=== PATIENT | female | born 2000 | race Hispanic/Latino ===

== ENCOUNTER 2018-11-20 16:52 | Inpatient (IN) | payer MEDICAID ==
[2018-11-20] MEDS ORDERED: LACTATED RINGERS 500 ML IV ONE (16:55)
[2018-11-20 17:26] LABS: Bilirubin,Urine SM (Negative); Blood,Urine NEG (Negative); Color,Urine Amber (Yellow); Mucus,Urine 3+ /HPF
[2018-11-20] MEDS ORDERED: AMPICILLIN/NS 2 GM/100 ML 2 GM/100 ML BAG IV ONE (17:43)
[2018-11-20 18:05] LABS: Ictotest,Urine Negative (Negative)
[2018-11-20 18:07] LABS: Benzodiazepines Screen,Urine PRESUMPTIVE NEGATIVE; Cocaine Screen,Urine PRESUMPTIVE NEGATIVE; Methadone Screen,Urine PRESUMPTIVE NEGATIVE; Opiate Screen,Urine PRESUMPTIVE NEGATIVE
[2018-11-20] MEDS: BRETHINE SUB-Q SCH ×2 (18:08→18:34)
[2018-11-20] MEDS ORDERED: LACTATED RINGERS 1,000 ML IV ONE (18:11)
[2018-11-20 18:31] LABS: Amphetamine Screen,Urine PRESUMPTIVE POSITIVE; Cannabinoid Screen,Urine PRESUMPTIVE POSITIVE
[2018-11-20] MEDS ORDERED: MILK OF MAGNESIA PO PRN (20:39)
[2018-11-20] MEDS ORDERED: TYLENOL PO PRN (20:39)
[2018-11-20] MEDS ORDERED: AMBIEN PO PRN (20:39)
[2018-11-20] MEDS ORDERED: COLACE PO PRN (20:39)
--- NOTE | 2018-11-20 20:39 | History and Physical Report ---
History of Present Illness Date of examination: 11/20/18 Chief complaint: contractions History of present illness: Pt is a 18yo WF EDC 12/24/18; EGA 35 1/7 weeks presents to L&D complaining of RUC's q 3-4 mins unresolved with IV hydration and SQ Terb. She is now being admitted to begin IV Magnesium sulfate for tocolysis and steroid administration. Past History Past Medical History: no pertinent history Past Surgical History: no surgical history Family/Genetic History: none Social history: no significant social history, single - Obstetrical History Expected Date of Delivery: 12/24/18 Actual Gestation: 35 Week(s) 2 Day(s) : 1 Medications and Allergies Allergies Allergy/AdvReac Type Severity Reaction Status Date / Time No Known Allergies Allergy Verified 11/20/18 17:07 Home Medications Medication Instructions Recorded Confirmed Last Taken Type No Known Home Medications [No 11/21/18 11/21/18 Unknown History Reported Home Medications] Active Meds: Active Medications Terbutaline Sulfate (Brethine) 0.25 mg SUB-Q Q20MIN [place] Stop: 11/22/18 18:01 Last Admin: 11/20/18 18:34 Dose: 0.25 mg Documented by: Review of Systems All systems: negative - Vital Signs Vital signs: Vital Signs Pulse BP 118 H 114/70 11/20/18 17:06 11/20/18 17:06 Temp Pulse Resp BP Pulse Ox 98.1 F 118 H 16 114/70 11/20/18 17:33 11/20/18 17:06 11/20/18 17:33 11/20/18 17:06 - Physical Exam Breasts: Positive: deferred Cardiovascular: Regular rate Lungs: Positive: Clear to auscultation Abdomen: Positive: normal appearance Genitourinary (Female): Positive: normal external genitalia Vagina: Positive: normal moisture Uterus: Positive: enlarged Extremities: Positive: normal - Obstetrical FHR: category 1 Uterine Contraction Monitor Mode: External Cervical Dilatation: 1.5 (per nurse) Cervical Effacement Percentage: 80 (per nurse) station: -1 Uterine Contraction Pattern: Regular Uterine Tone Measurement Phase: Contraction Uterine Contraction Intensity: Mild Results Result Diagrams: 11/20/18 17:20 11/20/18 17:20 Abnormal lab results 11/20/18 Range/Units 17:00 Ur Specific [place] 1.036 H (1.003-1.030) Urine WBC (Auto) 7.0 H (0.0-6.0) /HPF All other labs normal. Assessment and Plan - Patient Problems (1) 35 weeks gestation of Onset Date: 11/20/18 Current Visit: Yes Status: Acute Plan to address problem: A: IUP @ 35 1/7 weeks contractions +THC + Amphetamines P: Admit for Observation Begin IV Magnesium sulfate for tocolysis, Steroids and antibiotics [facility] consultation. (2) contractions Onset Date: 11/20/18 Current Visit: Yes Status: Acute
[2018-11-20] MEDS ORDERED: MAGNESIUM SULFATE 4GM/100ML 4 GM/100 ML BAG IV ONE (20:43)
[2018-11-20 21:12] LABS: Basophils # (Auto) 0.1 K/mm3 (0.0-0.1); Basophils % (Auto) 0.5 % (0.0-1.8); Eosinophils % (Auto) 0.2 % (0.0-4.3); Hematocrit 34.1 % (30.3-42.9); Hemoglobin 11.4 gm/dl (10.1-14.3); Lymphocytes # (Auto) 2.8 K/mm3 (1.2-5.4); Lymphocytes % (Auto) 20.1 % (13.4-35.0); Mean Corpuscular HGB Conc 33 % (30-34); Mean Corpuscular Volume 90 fl (79-97); Monocytes # (Auto) 0.7 K/mm3 (0.0-0.8); Monocytes % (Auto) 5.4 % (0.0-7.3); Platelet Count 269 K/mm3 (140-440); Red Cell Distribution Width 13.4 % (13.2-15.2)
[2018-11-20 21:36] LABS: Alanine Aminotransferase 16 units/L (7-56); Albumin 3.4 g/dL (3.9-5); BUN/Creatinine Ratio 14; Blood Urea Nitrogen 7 mg/dL (7-17); Calcium 8.9 mg/dL (8.4-10.2); Hemolysis Index 3
[2018-11-20] MEDS: CELESTONE SOLUSPAN IM SCH (22:12)
[2018-11-20] MEDS: MAGNESIUM SULFATE 40GM/1000ML 40 GM/1,000 ML BAG IV SCH (22:40)
[2018-11-20] MEDS: AMPICILLIN/NS 1 GM/50 ML 1 GM/50 ML BAG IV SCH (22:57)
[2018-11-21] MEDS ORDERED: STADOL ONE (03:20)
[2018-11-21] MEDS: BRETHINE SUB-Q SCH (03:25)
[2018-11-21] MEDS ORDERED: STADOL IV ONE (03:39)
[2018-11-21] MEDS: AMPICILLIN/NS 1 GM/50 ML 1 GM/50 ML BAG IV SCH ×5 (04:40→21:58)
[2018-11-21] MEDS: ZOFRAN IV PRN ×2 (04:50→11:13)
[2018-11-21] MEDS: MYLICON PO PRN ×2 (08:23→16:01)
[2018-11-21] MEDS: STADOL IV PRN ×3 (09:20→19:57)
--- NOTE | 2018-11-21 10:10 | Progress Note ---
Assessment and Plan - Patient Problems (1) 35 weeks gestation of Onset Date: 11/20/18 Current Visit: Yes Status: Acute Plan to address problem: A: IUP @ 35 2/7 weeks contractions +THC + Amphetamines P: Continue Observation Continue IV Magnesium sulfate for tocolysis, Steroids and antibiotics [facility] consultation - Discussed with [facility], allow her to deliver after 2nd dose of steroids. (2) contractions Onset Date: 11/20/18 Current Visit: Yes Status: Acute Subjective - Subjective Date of service: 11/21/18 Principal diagnosis: IUP @ 35 2/7 weeks; contractions Interval history: Pt is a 18yo WF EDC 12/24/18; EGA 35 2/7 weeks presented to L&D complaining of RUC's q 3-4 mins unresolved with IV hydration and SQ Terb. She was begun on IV Magnesium sulfate and currently on 2gm/hr for tocolysis and received 1st dose of steroids. She is still dane, but without cervical change. Patient reports: movement normal, contractions, no new complaints, no loss of fluid, no vaginal bleeding Objective - Vital Signs Vital Signs: Vital Signs - 12hr 11/20/18 11/20/18 11/20/18 22:18 22:28 22:34 Temperature 97.4 F L 97.6 F Pulse Rate 88 106 H 109 H Respiratory 16 16 Rate Blood Pressure 124/80 114/61 136/65 Blood Pressure 124/80 114/61 [Right] 11/20/18 11/20/18 11/20/18 22:38 23:11 23:43 Temperature Pulse Rate 105 H 94 H 100 H Respiratory Rate Blood Pressure 122/62 124/67 130/77 Blood Pressure [Right] 11/21/18 11/21/18 11/21/18 00:11 00:42 01:12 Temperature Pulse Rate 91 H 118 H 90 Respiratory Rate Blood Pressure 98/53 119/79 94/53 Blood Pressure [Right] 11/21/18 11/21/18 11/21/18 01:41 02:11 02:41 Temperature Pulse Rate 90 86 96 H Respiratory Rate Blood Pressure 99/55 102/58 123/78 Blood Pressure [Right] 11/21/18 11/21/18 11/21/18 03:00 03:12 03:41 Temperature 97.7 F Pulse Rate 86 95 H Respiratory Rate Blood Pressure 122/71 105/56 Blood Pressure [Right] 11/21/18 11/21/18 11/21/18 04:11 04:42 05:11 Temperature Pulse Rate 93 H 116 H 93 H Respiratory Rate Blood Pressure 111/61 127/72 118/71 Blood Pressure [Right] 11/21/18 11/21/18 11/21/18 05:41 06:12 06:41 Temperature Pulse Rate 86 87 89 Respiratory Rate Blood Pressure 120/75 121/78 117/76 Blood Pressure [Right] 11/21/18 11/21/18 11/21/18 07:11 07:41 08:13 Temperature Pulse Rate 84 83 89 Respiratory Rate Blood Pressure 103/54 100/59 124/65 Blood Pressure [Right] 11/21/18 11/21/18 11/21/18 08:42 09:13 09:42 Temperature Pulse Rate 100 H 91 H 81 Respiratory Rate Blood Pressure 123/77 124/78 109/53 Blood Pressure [Right] - Exam Cardiovascular: Regular rate Abdomen: Present: normal appearance Uterus: Present: normal FHR: category 1 Uterine Contraction Monitor Mode: External Cervical Dilatation: 2 (per nurse) Cervical Effacement Percentage: 100 (per nurse) station: 0 Uterine Contraction Pattern: Regular Uterine Tone Measurement Phase: Contraction Uterine Contraction Intensity: Moderate - Labs Labs: Abnormal Labs 11/20/18 11/20/18 11/20/18 17:00 17:20 17:20 WBC 13.7 H Seg Neutrophils % 73.8 H Seg Neutrophils # 10.1 H Sodium 135 L Creatinine 0.5 L Glucose 60 L Magnesium Alkaline Phosphatase 346 H Albumin 3.4 L Ur Specific [place] 1.036 H Urine WBC (Auto) 7.0 H 11/21/18 11/21/18 00:29 07:17 WBC Seg Neutrophils % Seg Neutrophils # Sodium Creatinine Glucose Magnesium 4.10 H 5.50 H Alkaline Phosphatase Albumin Ur Specific [place] Urine WBC (Auto) Laboratory Results - last 24 hr 11/20/18 11/20/18 11/20/18 17:00 17:20 17:20 WBC 13.7 H RBC 3.80 Hgb 11.4 Hct 34.1 MCV 90 MCH 30 MCHC 33 RDW 13.4 Plt Count 269 Lymph % (Auto) 20.1 [place] % (Auto) 5.4 Eos % (Auto) 0.2 Baso % (Auto) 0.5 Lymph # 2.8 [place] # 0.7 Eos # 0.0 Baso # 0.1 Seg Neutrophils % 73.8 H Seg Neutrophils # 10.1 H Sodium Potassium Chloride Carbon Dioxide Anion Gap BUN Creatinine Estimated GFR BUN/Creatinine Ratio Glucose Calcium Magnesium Total Bilirubin AST ALT Alkaline Phosphatase Total Protein Albumin Albumin/Globulin Ratio Urine Color [place] Urine Turbidity Clear Urine pH 5.0 Ur Specific [place] 1.036 H Urine Protein 30 mg/dl Urine Glucose (UA) Neg Urine Ketones Tr Urine Blood Neg Urine Nitrite Neg Urine Bilirubin Sm Urine Ictotest Negative Urine Urobilinogen 4.0 Ur Leukocyte Esterase Tr Urine WBC (Auto) 7.0 H Urine RBC (Auto) 2.0 U Epithel Cells (Auto) 5.0 Urine Mucus 3+ Urine Opiates Screen Urine Methadone Screen Ur Barbiturates Screen Ur Phencyclidine Scrn Ur Amphetamines Screen U Benzodiazepines Scrn Urine Cocaine Screen U Marijuana (THC) Screen Drugs of Abuse Note Blood Type A POSITIVE Antibody Screen Negative 11/20/18 11/20/18 11/21/18 17:20 17:34 00:29 WBC RBC Hgb Hct MCV MCH MCHC RDW Plt Count Lymph % (Auto) [place] % (Auto) Eos % (Auto) Baso % (Auto) Lymph # [place] # Eos # Baso # Seg Neutrophils % Seg Neutrophils # Sodium 135 L Potassium 4.2 Chloride 100.0 Carbon Dioxide 23 Anion Gap 16 BUN 7 Creatinine 0.5 L Estimated GFR > 60 BUN/Creatinine Ratio 14 Glucose 60 L Calcium 8.9 Magnesium 4.10 H Total Bilirubin 0.80 AST 22 ALT 16 Alkaline Phosphatase 346 H Total Protein 6.9 Albumin 3.4 L Albumin/Globulin Ratio 1.0 Urine Color Urine Turbidity Urine pH Ur Specific [place] Urine Protein Urine Glucose (UA) Urine Ketones Urine Blood Urine Nitrite Urine Bilirubin Urine Ictotest Urine Urobilinogen Ur Leukocyte Esterase Urine WBC (Auto) Urine RBC (Auto) U Epithel Cells (Auto) Urine Mucus Urine Opiates Screen Presumptive negative Urine Methadone Screen Presumptive negative Ur Barbiturates Screen Presumptive negative Ur Phencyclidine Scrn Presumptive negative Ur Amphetamines Screen Presumptive positive U Benzodiazepines Scrn Presumptive negative Urine Cocaine Screen Presumptive negative U Marijuana (THC) Screen Presumptive positive Drugs of Abuse Note Disclamer Blood Type Antibody Screen 11/21/18 07:17 WBC RBC Hgb Hct MCV MCH MCHC RDW Plt Count Lymph % (Auto) [place] % (Auto) Eos % (Auto) Baso % (Auto) Lymph # [place] # Eos # Baso # Seg Neutrophils % Seg Neutrophils # Sodium Potassium Chloride Carbon Dioxide Anion Gap BUN Creatinine Estimated GFR BUN/Creatinine Ratio Glucose Calcium Magnesium 5.50 H Total Bilirubin AST ALT Alkaline Phosphatase Total Protein Albumin Albumin/Globulin Ratio Urine Color Urine Turbidity Urine pH Ur Specific [place] Urine Protein Urine Glucose (UA) Urine Ketones Urine Blood Urine Nitrite Urine Bilirubin Urine Ictotest Urine Urobilinogen Ur Leukocyte Esterase Urine WBC (Auto) Urine RBC (Auto) U Epithel Cells (Auto) Urine Mucus Urine Opiates Screen Urine Methadone Screen Ur Barbiturates Screen Ur Phencyclidine Scrn Ur Amphetamines Screen U Benzodiazepines Scrn Urine Cocaine Screen U Marijuana (THC) Screen Drugs of Abuse Note Blood Type Antibody Screen
[2018-11-21] MEDS: PRENATAL VITAMIN PO SCH (11:13)
[2018-11-21] MEDS: LACTATED RINGERS 1,000 ML IV SCH (13:12)
[2018-11-21] MEDS: MAGNESIUM SULFATE 40GM/1000ML 40 GM/1,000 ML BAG IV SCH (19:59)
[2018-11-21] MEDS: CELESTONE SOLUSPAN IM SCH (21:57)
[2018-11-21] MEDS ORDERED: PITOCin/NS 20 UNIT/1000ML DRIP 20 UNITS/1,000 ML BAG IV SCH (23:00)
[2018-11-21] MEDS ORDERED: PITOCin/NS 30 UNIT/500ML 30 UNITS/500 ML BAG IV SCH (23:00)
[2018-11-22] MEDS: LACTATED RINGERS 1,000 ML IV SCH ×3 (00:37→10:26)
[2018-11-22] MEDS: ZOFRAN IV PRN ×2 (00:38→11:41)
[2018-11-22] MEDS: AMPICILLIN/NS 1 GM/50 ML 1 GM/50 ML BAG IV SCH ×4 (02:00→16:01)
[2018-11-22] MEDS: MYLICON PO PRN (06:07)
[2018-11-22] MEDS: STADOL IV PRN (06:08)
--- NOTE | 2018-11-22 09:45 | Progress Note ---
Assessment and Plan - Patient Problems (1) 35 weeks gestation of Onset Date: 11/20/18 Current Visit: Yes Status: Acute Plan to address problem: A: IUP @ 35 3/7 weeks PPROM contractions +THC + Amphetamines P: Will begin pitocin augmentation of labor Continue IV Ampicillin NICU notified (2) contractions Onset Date: 11/20/18 Current Visit: Yes Status: Acute Subjective - Subjective Date of service: 11/22/18 Principal diagnosis: IUP @ 35 3/7 weeks; contractions; PPROM Interval history: Pt is a 18yo WF EDC 12/24/18; EGA 35 3/7 weeks presented to L&D complaining of RUC's q 3-4 mins unresolved with IV hydration and SQ Terb. She was begun on IV Magnesium sulfate, received steroids, then had SROM clear fluid @ 1555 yesterday. She is now dane q 3-4 mins on pitocin 4mu/min. Patient reports: loss of fluid (SROM), movement normal, contractions, no new complaints, no vaginal bleeding Objective - Vital Signs Vital Signs: Vital Signs - 12hr 11/21/18 11/21/18 11/21/18 21:41 23:50 23:51 Temperature 97.8 F Pulse Rate 82 83 83 Respiratory 18 Rate Blood Pressure 119/69 115/77 Blood Pressure 115/77 [Right] 11/22/18 11/22/18 11/22/18 02:56 06:04 06:30 Temperature 97.9 F Pulse Rate 80 100 H Respiratory Rate Blood Pressure 120/68 136/70 Blood Pressure [Right] 11/22/18 11/22/18 11/22/18 06:38 07:00 07:30 Temperature Pulse Rate 73 73 69 Respiratory Rate Blood Pressure 98/54 105/59 99/57 Blood Pressure [Right] 11/22/18 11/22/18 08:00 09:09 Temperature Pulse Rate 104 H 102 H Respiratory Rate Blood Pressure 108/56 135/58 Blood Pressure [Right] - Exam Abdomen: Present: normal appearance Uterus: Present: normal FHR: category 1 Uterine Contraction Monitor Mode: External Cervical Dilatation: 3 (per nurse) Cervical Effacement Percentage: 70 (per nurse) station: -1 Uterine Contraction Pattern: Regular Uterine Tone Measurement Phase: Contraction Uterine Contraction Intensity: Moderate - Labs Labs: Abnormal Labs 11/20/18 11/20/18 11/20/18 17:00 17:20 17:20 WBC 13.7 H Seg Neutrophils % 73.8 H Seg Neutrophils # 10.1 H Sodium 135 L Creatinine 0.5 L Glucose 60 L Magnesium Alkaline Phosphatase 346 H Albumin 3.4 L Ur Specific [place] 1.036 H Urine WBC (Auto) 7.0 H 11/21/18 11/21/18 11/21/18 00:29 07:17 12:11 WBC Seg Neutrophils % Seg Neutrophils # Sodium Creatinine Glucose Magnesium 4.10 H 5.50 H 5.40 H Alkaline Phosphatase Albumin Ur Specific [place] Urine WBC (Auto) 11/21/18 18:39 WBC Seg Neutrophils % Seg Neutrophils # Sodium Creatinine Glucose Magnesium 6.50 H Alkaline Phosphatase Albumin Ur Specific [place] Urine WBC (Auto) Laboratory Results - last 24 hr 11/21/18 11/21/18 12:11 18:39 Magnesium 5.40 H 6.50 H
[2018-11-22] MEDS ORDERED: NARCAN 2 MG/2 ML IV PRN (10:29)
--- NOTE | 2018-11-22 10:31 | Anesthesia Consultation ---
Anesthesia Consult and Med Hx - Airway Anesthetic Teeth Evaluation: Good ROM Head & Neck: Adequate Mental/Hyoid Distance: Adequate Mallampati Class: Class I Intubation Access Assessment: Good - Pulmonary Exam CTA: Yes - Cardiac Exam Cardiac Exam: RRR - Pre-Operative Health Status ASA Pre-Surgery Classification: ASA2 Proposed Anesthetic Plan: Epidural - Pulmonary Hx Asthma: No - Cardiovascular System Hx Hypertension: No - Central Nervous System Hx Seizures: No Hx Psychiatric Problems: No - Endocrine Hx Renal Disease: No Hx Hypothyroidism: No Hx Hyperthyroidism: No - Hematic Hx Anemia: No Hx Sickle Cell Disease: No - Other Systems Hx Alcohol Use: Yes
--- NOTE | 2018-11-22 10:31 | Anesthesia Day of Surgery ---
Anesthesia Day of Surgery - Day of Surgery Patient Examined: Yes Patient H&P Reviewed: Yes Patient is NPO: Yes Beta Blockers: No Cardiac Clearance: No Pulmonary Clearance: No Augusto's Test: N/A
[2018-11-22] MEDS ORDERED: MARCAINE 0.25% INFILTRATI ONE (10:34)
[2018-11-22] MEDS ORDERED: fentaNYL-BUPIV 2 MCG/ML-0.125% 200 MCG/100 ML BAG EPIDURAL SCH (11:00)
[2018-11-22] MEDS ORDERED: XYLOCAINE 2%/ EPI 1:200,000 INFILTRATI ONE (15:03)
[2018-11-22] MEDS ORDERED: MINERAL OIL ONE (16:27)
--- NOTE | 2018-11-22 16:49 | Procedure Note ---
OB Delivery Note - Delivery Date of Delivery: 11/22/18 Surgeon: IZAIAH ORTIZ Estimated blood loss: 300cc - Vaginal Delivery presentation: vertex Delivery position: OA Intrapartum events: labor-<37 weeks, PROM->1hr before delivery, meconium Delivery induction: oxytocin Delivery augmentation: rupture of membranes, pitocin Delivery monitor: external FHT, external uterine Route of delivery: Delivery placenta: spontaneous Delivery cord: 3 umbilical vessels Episiotomy: none Delivery laceration: 2nd degree (perineal) Delivery repair: vicryl Anesthesia: epidural Delivery comments: Infant delivered OA and placed on Mom's chest for [id number] bonding and delayed cord clamping, cut by Dad - A at 1 minute: 8 at 5 minutes: 9 Gender: Male (2860gms)
[2018-11-22] MEDS ORDERED: LANSINOH TP PRN (16:50)
[2018-11-22] MEDS ORDERED: PHENERGAN PR PRN (16:50)
[2018-11-22] MEDS ORDERED: ZOFRAN IV PRN (16:50)
[2018-11-22] MEDS ORDERED: DULCOLAX PR PRN (16:50)
[2018-11-22] MEDS ORDERED: TUCKS PAD TP PRN (16:50)
[2018-11-22] MEDS ORDERED: MILK OF MAGNESIA PO PRN (16:50)
[2018-11-22] MEDS ORDERED: NORCO 5/325 PO PRN (16:50)
[2018-11-22] MEDS ORDERED: TYLENOL PO PRN (16:50)
[2018-11-22] MEDS ORDERED: PHENERGAN PO PRN (16:50)
[2018-11-22] MEDS ORDERED: SODIUM CHLORIDE FLUSH SYRINGE 10 ML IV SCH (17:00)
[2018-11-22] MEDS ORDERED: PITOCin/NS 20 UNIT/1000ML DRIP 20 UNITS/1,000 ML BAG IV SCH (18:00)
[2018-11-22] MEDS: IBUPROFEN PO SCH (19:37)
[2018-11-23] MEDS: IBUPROFEN PO SCH ×3 (00:32→18:12)
[2018-11-23] MEDS: FEOSOL PO SCH ×3 (00:32→22:00)
[2018-11-23] MEDS: MYLICON PO PRN (02:23)
[2018-11-23] MEDS ORDERED: BOOSTRIX IM ONE (06:00)
[2018-11-23 07:16] LABS: Hematocrit 22.3 % (30.3-42.9); Hemoglobin 7.5 gm/dl (10.1-14.3)
--- NOTE | 2018-11-23 08:47 | Progress Note ---
Assessment and Plan - Patient Problems (1) 35 weeks gestation of Onset Date: 11/20/18 Current Visit: Yes Status: Resolved (2) contractions Onset Date: 11/20/18 Current Visit: Yes Status: Resolved (3) (normal spontaneous vaginal delivery) Onset Date: 11/23/18 Current Visit: Yes Status: Resolved Plan to address problem: A: S/P - PPD #1 Doing well Asymptomatic anemia - stable P: May go home tomorrow. (4) Acute blood loss anemia Onset Date: 11/23/18 Current Visit: Yes Status: Acute Subjective - Subjective Date of service: 11/23/18 Principal diagnosis: s/p - PPD #1 Interval history: Pt is feeling well without complaints. Bleeding improved. Patient reports: appetite normal, voiding normally, pain well controlled, flatus, ambulating normally, no dizzy ambulation, no nauseated [place]: doing well, in NICU Objective - Vital Signs Latest vital signs: Vital Signs Temp Pulse Resp BP BP Pulse Ox 11/23/18 05:45 98.8 F 81 18 92/61 99 11/23/18 00:10 98.5 F 87 18 107/65 97 11/22/18 19:48 98.4 F 114 H 18 113/76 97 11/22/18 18:15 98.3 F 73 18 117/73 11/22/18 17:45 96 H 118/58 11/22/18 17:30 105 H 115/63 11/22/18 17:16 111 H 115/55 11/22/18 17:01 103 H 130/56 11/22/18 16:46 112 H 112/60 11/22/18 16:01 122 H 105/59 11/22/18 15:58 123 H 105/59 11/22/18 15:51 117 H 101/58 11/22/18 15:45 123 H 105/52 11/22/18 15:41 109 H 96/53 11/22/18 15:35 114 H 98/53 11/22/18 15:31 113 H 96/55 11/22/18 15:26 110 H 96/51 11/22/18 15:21 133 H 104/55 11/22/18 15:16 112 H 109/57 11/22/18 15:10 121 H 99/55 11/22/18 15:05 109 H 104/57 11/22/18 15:03 103 H 111/50 11/22/18 14:31 87 111/57 11/22/18 14:00 98 H 127/74 11/22/18 13:55 101 H 117/70 11/22/18 13:41 90 101/58 11/22/18 13:30 97.9 F 11/22/18 13:25 93 H 108/56 11/22/18 13:12 87 108/58 11/22/18 13:01 88 100 11/22/18 12:56 78 102/57 95 11/22/18 12:51 83 95 11/22/18 12:46 82 98 11/22/18 12:41 85 98 11/22/18 12:40 85 106/56 11/22/18 12:36 85 96 11/22/18 12:31 78 98 11/22/18 12:26 80 104/60 97 11/22/18 12:21 83 98 11/22/18 12:16 94 H 97 11/22/18 12:11 80 99 11/22/18 12:07 80 94/53 11/22/18 12:06 84 98 11/22/18 12:02 78 92/54 11/22/18 12:01 83 99 11/22/18 12:00 84 93 11/22/18 11:58 79 102/55 11/22/18 11:52 85 102/57 11/22/18 11:49 85 107/56 11/22/18 11:43 112 H 145/70 11/22/18 11:37 81 118/71 11/22/18 11:33 80 117/67 11/22/18 11:26 116 H 119/66 11/22/18 11:23 16 11/22/18 11:22 127 H 99/61 11/22/18 11:21 97.6 F 11/22/18 11:20 77 100/59 11/22/18 11:18 95 H 101/58 11/22/18 11:16 90 100/56 11/22/18 11:14 81 100/57 11/22/18 11:12 86 100/58 11/22/18 11:10 102 H 97/54 11/22/18 11:08 86 95/53 11/22/18 11:02 81 111/71 11/22/18 11:00 77 111/72 11/22/18 10:58 78 109/66 11/22/18 10:56 81 109/65 11/22/18 10:54 82 113/63 11/22/18 10:52 77 119/68 11/22/18 10:49 117/67 11/22/18 10:45 90 121/62 11/22/18 10:44 98 H 121/56 11/22/18 10:40 18 123/80 11/22/18 10:39 93 H 123/80 11/22/18 09:09 102 H 135/58 Intake and Output 11/22/18 11/23/18 11/23/18 22:59 06:59 14:59 Intake Total 400 Output Total 700 550 Balance -700 -150 Intake: Intake, Free Water 400 Output: Urine 700 550 Indwelling Catheter 500 Void 200 550 Other: Total, Output Amount 200 400 Estimated Blood Loss 300 - Exam Cardiovascular: Present: Regular rate Abdomen: Present: normal appearance, soft Uterus: Present: normal, firm, fundal height below umbilicus Extremities: Present: normal - Labs Labs: Abnormal lab results 11/23/18 Range/Units 07:02 Hgb 7.5 L D (10.1-14.3) gm/dl Hct 22.3 L D (30.3-42.9) % Laboratory Tests 11/20/18 11/20/18 11/20/18 17:00 17:20 17:20 WBC 13.7 H RBC 3.80 Hgb 11.4 Hct 34.1 MCV 90 MCH 30 MCHC 33 RDW 13.4 Plt Count 269 Lymph % (Auto) 20.1 [place] % (Auto) 5.4 Eos % (Auto) 0.2 Baso % (Auto) 0.5 Lymph # 2.8 [place] # 0.7 Eos # 0.0 Baso # 0.1 Seg Neutrophils % 73.8 H Seg Neutrophils # 10.1 H Sodium Potassium Chloride Carbon Dioxide Anion Gap BUN Creatinine Estimated GFR BUN/Creatinine Ratio Glucose Calcium Magnesium Total Bilirubin AST ALT Alkaline Phosphatase Total Protein Albumin Albumin/Globulin Ratio Urine Color [place] Urine Turbidity Clear Urine pH 5.0 Ur Specific [place] 1.036 H Urine Protein 30 mg/dl Urine Glucose (UA) Neg Urine Ketones Tr Urine Blood Neg Urine Nitrite Neg Urine Bilirubin Sm Urine Ictotest Negative Urine Urobilinogen 4.0 Ur Leukocyte Esterase Tr Urine WBC (Auto) 7.0 H Urine RBC (Auto) 2.0 U Epithel Cells (Auto) 5.0 Urine Mucus 3+ Urine Opiates Screen Urine Methadone Screen Ur Barbiturates Screen Ur Phencyclidine Scrn Ur Amphetamines Screen U Benzodiazepines Scrn Urine Cocaine Screen U Marijuana (THC) Screen Drugs of Abuse Note Blood Type A POSITIVE Antibody Screen Negative 11/20/18 11/20/18 11/21/18 17:20 17:34 00:29 WBC RBC Hgb Hct MCV MCH MCHC RDW Plt Count Lymph % (Auto) [place] % (Auto) Eos % (Auto) Baso % (Auto) Lymph # [place] # Eos # Baso # Seg Neutrophils % Seg Neutrophils # Sodium 135 L Potassium 4.2 Chloride 100.0 Carbon Dioxide 23 Anion Gap 16 BUN 7 Creatinine 0.5 L Estimated GFR > 60 BUN/Creatinine Ratio 14 Glucose 60 L Calcium 8.9 Magnesium 4.10 H Total Bilirubin 0.80 AST 22 ALT 16 Alkaline Phosphatase 346 H Total Protein 6.9 Albumin 3.4 L Albumin/Globulin Ratio 1.0 Urine Color Urine Turbidity Urine pH Ur Specific [place] Urine Protein Urine Glucose (UA) Urine Ketones Urine Blood Urine Nitrite Urine Bilirubin Urine Ictotest Urine Urobilinogen Ur Leukocyte Esterase Urine WBC (Auto) Urine RBC (Auto) U Epithel Cells (Auto) Urine Mucus Urine Opiates Screen Presumptive negative Urine Methadone Screen Presumptive negative Ur Barbiturates Screen Presumptive negative Ur Phencyclidine Scrn Presumptive negative Ur Amphetamines Screen Presumptive positive U Benzodiazepines Scrn Presumptive negative Urine Cocaine Screen Presumptive negative U Marijuana (THC) Screen Presumptive positive Drugs of Abuse Note Disclamer Blood Type Antibody Screen 11/21/18 11/21/18 11/21/18 07:17 12:11 18:39 WBC RBC Hgb Hct MCV MCH MCHC RDW Plt Count Lymph % (Auto) [place] % (Auto) Eos % (Auto) Baso % (Auto) Lymph # [place] # Eos # Baso # Seg Neutrophils % Seg Neutrophils # Sodium Potassium Chloride Carbon Dioxide Anion Gap BUN Creatinine Estimated GFR BUN/Creatinine Ratio Glucose Calcium Magnesium 5.50 H 5.40 H 6.50 H Total Bilirubin AST ALT Alkaline Phosphatase Total Protein Albumin Albumin/Globulin Ratio Urine Color Urine Turbidity Urine pH Ur Specific [place] Urine Protein Urine Glucose (UA) Urine Ketones Urine Blood Urine Nitrite Urine Bilirubin Urine Ictotest Urine Urobilinogen Ur Leukocyte Esterase Urine WBC (Auto) Urine RBC (Auto) U Epithel Cells (Auto) Urine Mucus Urine Opiates Screen Urine Methadone Screen Ur Barbiturates Screen Ur Phencyclidine Scrn Ur Amphetamines Screen U Benzodiazepines Scrn Urine Cocaine Screen U Marijuana (THC) Screen Drugs of Abuse Note Blood Type Antibody Screen 11/23/18 07:02 WBC RBC Hgb 7.5 L D Hct 22.3 L D MCV MCH MCHC RDW Plt Count Lymph % (Auto) [place] % (Auto) Eos % (Auto) Baso % (Auto) Lymph # [place] # Eos # Baso # Seg Neutrophils % Seg Neutrophils # Sodium Potassium Chloride Carbon Dioxide Anion Gap BUN Creatinine Estimated GFR BUN/Creatinine Ratio Glucose Calcium Magnesium Total Bilirubin AST ALT Alkaline Phosphatase Total Protein Albumin Albumin/Globulin Ratio Urine Color Urine Turbidity Urine pH Ur Specific [place] Urine Protein Urine Glucose (UA) Urine Ketones Urine Blood Urine Nitrite Urine Bilirubin Urine Ictotest Urine Urobilinogen Ur Leukocyte Esterase Urine WBC (Auto) Urine RBC (Auto) U Epithel Cells (Auto) Urine Mucus Urine Opiates Screen Urine Methadone Screen Ur Barbiturates Screen Ur Phencyclidine Scrn Ur Amphetamines Screen U Benzodiazepines Scrn Urine Cocaine Screen U Marijuana (THC) Screen Drugs of Abuse Note Blood Type Antibody Screen
[2018-11-23] MEDS: BENADRYL PO PRN ×2 (10:36→18:13)
[2018-11-23] MEDS: PRENATAL VITAMIN PO SCH (10:37)
[2018-11-23] MEDS ORDERED: M-M-R II VACCINE SUB-Q ONE (16:50)
[2018-11-24] MEDS: IBUPROFEN PO SCH
[2018-11-24 00:47] VITALS: BP 94/66
--- NOTE | 2018-11-24 08:18 | Discharge Summary ---
Providers - Providers Date of Admission: 11/22/18 16:51 Date of discharge: 11/24/18 Attending physician: IZAIAH ORTIZ 11/21/18 10:02 Consult to Physician [CONS] Routine Comment: Consulting Provider: SALVATORE PALOMINO Physician Instructions: Reason For Exam: IUP @ 35 weeks; PTL 11/21/18 10:15 Consult to Physician [CONS] Routine Comment: Consulting Provider: JESSY LAZO Physician Instructions: Reason For Exam: IUP @ 35 weeks 11/23/18 07:25 Consult to Case Management [CONS] Routine Services Needed at Discharge: Screen Tender Notified:: no Was contact made?: No Primary care physician: IZAIAH ORTIZ Hospitalization Reason for admission: IUP - , labor, rupture of membranes Delivery: Episiotomy: none Laceration: 2nd degree Other procedures: none complications: none Discharge diagnosis: delivery [place] baby: male Hospital course: Pt is a 18yo WF EDC 12/24/18; EGA 35 3/ weeks who presented to L&D complaining of RUC's q 3-4 mins unresolved with IV hydration and SQ Terb. She was hospitalized and begun on IV Magnesium sulfate, received steroids, but then had SROM clear fluid followed by active labor. She subsequently delivered a viable 2860gm male infant who is currently in NICU. course was unremarkable, and therefore will be discharged to home on PPD #2 in stable condition. Condition at discharge: Good Disposition: DC-[id number] TO HOME OR SELFCARE - Discharge Diagnoses (1) 35 weeks gestation of Status: Resolved (2) contractions Status: Resolved (3) (normal spontaneous vaginal delivery) Status: Resolved (4) Acute blood loss anemia Status: Resolved Plan - Discharge Medications Prescriptions: Ferrous Sulfate [Feosol 325 MG tab] 325 mg PO BID #60 tablet Ibuprofen [Motrin 600 MG tab] 600 mg PO Q6HR #30 tablet Vit-Fe Fumar-FA [ Vitamin] 1 each PO QDAY #30 tablet - Provider Discharge Summary Activity: routine, no sex for 6 weeks, no heavy lifting 4 weeks, no strenuous exercise Diet: routine Instructions: routine Additional instructions: [] Smoking cessation referral if applicable(refer to patient education folder for contact #) [] Refer to [facility] Booklet Call your doctor immediately for: * Fever > 100.5 * Heavy vaginal bleeding ( >1 pad per hour) * Severe persistent headache * Shortness of breath * Reddened, hot, painful area to leg or breast * Drainage or odor from incision. * Keep incision clean and dry at all times and follow doctor's instructions r egarding bathing/showering - Follow up plan Follow up: IZAIAH ORTIZ MD [Primary Care Provider] - 6 Weeks REJI NAZARIO CNM [Advanced Practice Nurse] - 6 Weeks
[2018-11-24] MEDS: PRENATAL VITAMIN PO SCH (09:49)
[2018-11-24] MEDS: FEOSOL PO SCH (09:50)
== END 2018-11-24 11:00 | disposition home or self-care (01) | DRG 775 ==
LOC: TRG 16:52 → LD 20:50 → OBSVTOIN 11-22 16:51 → OB 11-22 18:45
PROVIDERS: ADMIT Obstetrics & Gynecology; ATTEND Obstetrics & Gynecology
PROC: 10E0XZZ Delivery of Products of Conception, External Approach (ICD-10-PCS; principal; 2018-11-22)
PROC: 0KQM0ZZ Repair Perineum Muscle, Open Approach (ICD-10-PCS; 2018-11-22)
PROC: 3E0R3BZ Introduction of Anesthetic Agent into Spinal Canal, Percutaneous Approach (ICD-10-PCS; 2018-11-22)
PROC: 00HU33Z Insertion of Infusion Device into Spinal Canal, Percutaneous Approach (ICD-10-PCS; 2018-11-22)
PROC: 3E0234Z Introduction of Serum, Toxoid and Vaccine into Muscle, Percutaneous Approach (ICD-10-PCS; 2018-11-23)
DX: O42.913 Preterm premature rupture of membranes, unspecified as to length of time between rupture and onset of labor, third trimester (principal); O99.324 Drug use complicating childbirth; Z3A.35 35 weeks gestation of pregnancy; D62 Acute posthemorrhagic anemia; Z37.0 Single live birth; O77.0 Labor and delivery complicated by meconium in amniotic fluid; F15.90 Other stimulant use, unspecified, uncomplicated; O90.81 Anemia of the puerperium; O60.14X0 Preterm labor third trimester with preterm delivery third trimester, not applicable or unspecified; O70.1 Second degree perineal laceration during delivery; Z23 Encounter for immunization
CPT/HCPCS: 36415; 80053; 80307; 81001; 83735; 85014; 85018; 85025; 86850; 86900; 86901; 87086; 88307; G0378; J0290; J0595; J0702; J2405; J2590; J3105; J3475; J7120